=== PATIENT | female | born 1980 | race Caucasian/White ===

== ENCOUNTER 2020-09-30 11:13 | Outpatient (REF) | payer OTHER, SELFPAY | END 2020-09-30 11:14 | disposition home or self-care (01) | LOC: HO.LAB 11:13 | PROVIDERS: Visit Provider Hospitalist | DX: Z20.828 Contact with and (suspected) exposure to other viral communicable diseases (principal) | CPT/HCPCS: U0003 ==

== ENCOUNTER 2024-01-18 16:18 | Outpatient (REF) | payer OTHER, SELFPAY ==
[2024-01-18 18:53] LABS: Alanine Aminotransferase 18 U/L (0-31); Albumin Level 4.1 g/dL (3.5-5.0); Alkaline Phosphatase 63 U/L (39-117); Anion Gap 12 (12-20); Aspartate Amino Transferase 16 U/L (5-31); Bilirubin Total 0.3 mg/dL (0.0-1.0); Blood Urea Nitrogen 14 mg/dL (9-16); C Reactive Protein 0.52 mg/dL (< or = 0.50); Carbon Dioxide 24 mmol/L (22-29); Chloride 108 mmol/L (96-108); Cholesterol 193 mg/dL (<200); Estimated Glomerular Filt Rate > 60; Glucose Random 77 mg/dL (60-115); Potassium 3.8 mmol/L (3.3-5.1); Sodium 140 mmol/L (135-145); Total Protein 6.9 g/dL (6.5-8.0); Uric Acid 5.2 mg/dL (2.4-5.7)
[2024-01-18 18:55] LABS: Free T4 (Free Thyroxine) 0.92 ng/dL (0.71-1.85)
== END 2024-01-18 16:19 | disposition home or self-care (01) ==
LOC: HO.LAB 16:18
PROVIDERS: PCP Internal Medicine; Visit Provider Internal Medicine
DX: K21.9 Gastro-esophageal reflux disease without esophagitis (principal); R63.5 Abnormal weight gain
CPT/HCPCS: 36415; 80053; 82465; 82550; 84439; 84443; 84550; 86140

== ENCOUNTER → 2025-03-27 09:24 | Outpatient (BNVA) | payer OTHER, SELFPAY | PROVIDERS: PCP Internal Medicine; Visit Provider Internal Medicine | DX: Z23 Encounter for immunization (principal) | CPT/HCPCS: 90471; 90715 ==

== ENCOUNTER 2025-03-27 10:01 | Outpatient (AMB) | payer OTHER, SELFPAY ==
[2025-03-27 10:02] VITALS: BP 108/74; PULSE 66; TEMP 36.7; O2SAT 98; BMI 34.1
--- NOTE | 2025-03-27 10:02 | AM.OFFWIN_ITS ---
Intake Vital Signs 03/27/25 10:02 Height 5 ft 6 in Weight 211 lb BMI 34.1 BP 108/74 Blood Pressure Location Lt brachial Position Sitting Pulse 66 Pulse Source Pulse Oximeter Temp 98.0 F Temp Source Oral Pulse Oximetry (%) 98 Oxygen Delivery Method Room Air Intake Visit Reasons: EP-lt arm sore Intake Note: Pt presents to the office today for c/o a anthony screw that scratched her left shoulder and punctured her left forearm about a week ago. Pt would like a TDAP booster today. Patient Tobacco Use Status: Never used Tobacco Allergies NSAIDS (Non-Steroidal Anti-Inflamma Allergy (Intermediate, Verified 03/27/25 10:05) joint swelling HPI HPI Comments History of Present Illness Details 44 y/o Female patient who presents to [facility] with c/o Left Forearm Pain for about a week. Pt reports a anthony screw punctured her left arm a week ago, and now asking for T-dap Vaccine. [facility] Medical History (Updated 03/27/25 @ 10:18 by So Sandy NP) Need for dwwtuflfnz-djacria-ehdsjtvgs (Tdap) vaccine Social History Housing: House Patient Tobacco Use Status: Never used Tobacco e-Cigarette/Vaping Use: Never Used service: No Cognitive needs: No Hearing needs: No Vision needs: No Review of Systems Const All systems reviewed & are unremarkable except as noted in HPI and below Physical Exam Vital Signs: Last Vital Signs Temp 98.0 F 03/27/25 10:02 Pulse 66 03/27/25 10:02 BP 108/74 03/27/25 10:02 Pulse Ox 98 03/27/25 10:02 Oxygen Delivery Method Room Air 03/27/25 10:02 BMI result Body Mass Index 34.1 Const General: comfortable and no acute distress Nutritional Appearance: overweight Orientation/consciousness: patient oriented x3 Skin Other: No visible wounds or openings on skin. Neuro General: patient oriented x3, gait normal and moves all extremities Psych Speech and movement: Normal speech and movement present Immunizations Boostrix Tdap 2.5 Lf unit-8 mcg-5 Lf/0.5 mL intramuscular syringe Performing Provider: So Sandy NP Performing Location: [facility] Administered by: Iris Oneil CMA on 03/27/25 10:18 Dose Route Admin Location Dispensed Lot Number Expiration Date NDC Wrist Closer 0.5 mL IM Left Tricep 0.5 mL [id number] 06/18/27 19509-517-42 [employer] VIS Given Date VIS Provided VIS Publication Date 03/27/25 Single Vaccine 21 Eligibility Eligibility Date Funding Source Not [facility] Eligible 03/27/25 Private Assessment & Plan Assessment & Plan (1) Need for mhaxadplwj-uwlqays-akpfirlqh (Tdap) vaccine: Code(s): Z23 - Encounter for immunization Plan: Ordered Tdap - no immunization records available and patient does not remember the last time she had Tdap vaccine. Orders: Orders TDaP Immunization Today Z23 - Encounter for immunization Medications: New Boostrix Tdap (diphth,pertus(acell),tetanus) 0.5 mL IM ONCE 0.5 mL 0RF NS Z23 - Encounter for immunization Coding Level of Care Code Est Pt Level 4 (59170) Diagnoses Need for letyzulrrb-duueelx-ozrfddxvy (Tdap) vaccine Z23 Time Spent (min) 20
== END 2025-03-27 10:25 | disposition home or self-care (01) ==
PROVIDERS: PCP Internal Medicine; Visit Provider Nurse Practitioner Family
DX: Z23 Encounter for immunization (principal)